=== PATIENT | female | born 1945 | race Caucasian/White ===

== ENCOUNTER 2016-10-15 11:15 | Emergency (ER) | payer MEDICARE ==
[~2016-10-15] VITALS: Ht 167.6 cm; Wt 103.0 kg
[2016-10-15 11:21] VITALS: BP 188/84; PULSE 53; RESP 16; TEMP 97.5; O2SAT 95
[2016-10-15] MEDS ORDERED: HYDR25TA5 PO (11:31)
[2016-10-15] MEDS ORDERED: METO50TA11 PO (11:31)
[2016-10-15] MEDS ORDERED: OMEP10CA PO (11:31)
[2016-10-15] MEDS ORDERED: PROZ20CA11 PO (11:31)
[2016-10-15] MEDS ORDERED: LOVA20TA PO (11:31)
--- NOTE | 2016-10-15 11:43 | PD ---
HPI Chief Complaint: Injury Time Seen by Provider: 11:38 Travel History International Travel<30 days: No Contact w/Intl Traveler<30days: No Traveled to known affect area: No History of Present Illness HPI 71 y/o female presents the emergency department status post trip and fall walking her dog this morning. Patient states she tripped and fell forward sustaining an abrasion to the anterior left knee, and abrasions to the chin, upper and lower lip. There is a superficial laceration to the inner buccal membrane of the lower lip. She denies any dental injury or loose teeth. He denies loss of consciousness, or neck pain. Patient denies headache, dizziness , or pain in her jaw. She is completely right upper arm pain, although there is no visible injury to the right arm itself. She has no numbness, tingling, or weakness. Pain is described as a 3 out of 10. It is worse with movement of the right arm. She is allergic to penicillin and Vasotec. PFSH Past Medical History Hx Anticoagulant Therapy: No Anxiety: Yes Cardiovascular Problems: Yes (HTN, CHOL) High Cholesterol: Yes Diabetes: Yes (PRE) Patient Takes Glucophage: No Diminished Hearing: No GERD: Yes Hypertension: Yes Tetanus Vaccination: < 5 Years Influenza Vaccination: Yes ?: Not Past Surgical History Hysterectomy: Yes Social History Alcohol Use: Yes (occ.) Tobacco Use: No Substance Use: No Allergies-Medications (Allergen,Severity, Reaction): Coded Allergies: Penicillin (Verified Allergy, Severe, 10/15/16) Vasotec (Verified Allergy, Severe, 10/15/16) Reported Meds & Prescriptions Reported Meds & Active Scripts Active Ibuprofen 600 Mg Tab 600 Mg PO Q6H PRN Non-Aspirin Pain Relief ES (Acetaminophen) 500 Mg Tab 1,000 Mg PO Q6HR PRN Reported Omeprazole 10 Mg Cap 10 Mg PO DAILY Lovastatin 20 Mg Tab 20 Mg PO DAILY Prozac (Fluoxetine HCl) 20 Mg Cap 20 Mg PO DAILY Metoprolol Succinate ER 24 HR (Metoprolol Succinate) 50 Mg Tab 50 Mg PO DAILY Hydrochlorothiazide 25 Mg Tab 25 Mg PO DAILY Review of Systems Except as stated in HPI: all other systems reviewed are Neg General / Constitutional: No: Fever Eyes: No: Visual changes HENT: No: Headaches Cardiovascular: No: Chest Pain or Discomfort Respiratory: No: Shortness of Breath Gastrointestinal: No: Abdominal Pain Genitourinary: No: Dysuria Musculoskeletal: No: Pain Skin: No Rash Neurologic: No: Weakness Psychiatric: No: Depression Endocrine: No: Polydipsia Hematologic/Lymphatic: No: Easy Bruising Physical Exam Narrative GENERAL: Moderately obese female who is ambulatory and in mild distress. SKIN: Warm and dry. Normal color. Normal turgor. Superficial abrasion noted to the left anterior knee, as well as the upper lip, lower lip, and chin. HEAD: Atraumatic. Normocephalic. Mild tenderness at abrasion site. EYES: Pupils equal and round. No scleral icterus. No injection or drainage. ENT: No nasal bleeding or discharge. Mucous membranes pink and moist. No dental injury. No pain with TMJ motion. Pharynx is clear. Airway is patent. Patient has a small laceration to the inner buccal membranes without significant bleeding at this time. NECK: Trachea midline. No JVD. No bony tenderness or step-off. Range of motion is full and nontender. CARDIOVASCULAR: Regular rate and rhythm. RESPIRATORY: No accessory muscle use. Clear to auscultation. Breath sounds equal bilaterally. GASTROINTESTINAL: Abdomen soft, non-tender, nondistended. Hepatic and splenic margins not palpable. MUSCULOSKELETAL: Extremities without clubbing, cyanosis, or edema. No obvious deformities. Patient has decreased range of motion in the right shoulder secondary to discomfort. There is no obvious loss of function however. Neurovascular exam is normal distally. The right elbow, wrist, and hand are within normal limits. NEUROLOGICAL: Awake and alert. No obvious cranial nerve deficits. Motor grossly within normal limits. Five out of 5 muscle strength in the arms and legs. Normal speech. PSYCHIATRIC: Appropriate mood and affect; insight and judgment normal. Data Data Last Documented VS Vital Signs Date Time Temp Pulse Resp B/P Pulse Ox O2 Delivery O2 Flow Rate FiO2 10/15/16 11:21 97.5 53 16 188/[address] Brain W/O Iv Contrast(Rout) (10/15/16 11:43) Humerus (Min 2vws) (10/15/16 11:43) [facility] Medical Decision Making Medical Screen Exam Complete: Yes Emergency Medical Condition: Yes Differential Diagnosis Trip and fall. Facial abrasion. Facial contusion. Left knee abrasion. Right upper arm pain. Possible fracture. Narrative Course Patient is a medically stable at time of exam. CT of the head is ordered. X-ray of the right humerus is ordered. Both the CT of the head and x-ray of the right humerus is negative for radiologist. Patient is to apply antibiotic ointment to the facial abrasions and knee abrasions. Patient is to use ice frequently to the affected areas. Patient is given a prescription for acetaminophen 500 mg 2 tabs every 6 hours when necessary #60. Patient's also given ibuprofen to be taken with the acetaminophen 600 mg 4 times a day #40. Patient is to rest and follow up with her primary care physician as needed. Diagnosis Primary Impression: Fall from slip, trip, or stumble Qualified Code: W01.0XXA - Fall from slip, trip, or stumble, initial encounter Additional Impressions: Facial contusion Qualified Code: S00.83XA - Facial contusion, initial encounter Facial abrasion Qualified Code: S00.81XA - Facial abrasion, initial encounter Strain of right upper arm Qualified Code: S46.911A - Strain of right upper arm, initial encounter Referrals: Primary Care Physician Patient Instructions: Abrasion (ED), Arm Pain (ED), Facial Contusion (ED), General Instructions Additional Instructions: Both the CT of the head and x-ray of the right humerus is negative for radiologist. Patient is to apply antibiotic ointment to the facial abrasions and knee abrasions. Patient is to use ice frequently to the affected areas. Patient is given a prescription for acetaminophen 500 mg 2 tabs every 6 hours when necessary #60. Patient's also given ibuprofen to be taken with the acetaminophen 600 mg 4 times a day #40. Patient is to rest and follow up with her primary care physician as needed. Med/Other Pt SpecificInfo: Prescription(s) given Scripts Ibuprofen 600 Mg Vyg773 Mg PO Q6H PRN (Pain/Inflammation) #40 TAB Prov:Elo Oneill DO 10/15/16 Acetaminophen (Non-Aspirin Pain Relief ES)500 Mg Tab1,000 Mg PO Q6HR PRN (PAIN) #60 TAB Prov:Elo Oneill DO 10/15/16 Disposition: 01 DISCHARGE HOME Condition: Stable King Niño Oct 15, 2016 11:42
--- NOTE | 2016-10-15 12:15 | RADRPT ---
EXAM DATE/TIME: 10/15/2016 11:52 [facility] COMPARISON: No previous studies available for comparison. INDICATIONS : Trauma. Fall. RADIATION DOSE: 61.68 CTDIvol (mGy) MEDICAL HISTORY : Diabetes mellitus type 2. Hypertension. SURGICAL HISTORY : Hysterectomy. ENCOUNTER: Initial ACUITY: 1 day PAIN SCALE: 0/10 LOCATION: cranial TECHNIQUE: Multiple contiguous axial images were obtained of the head. Using automated exposure control and adj ustment of the mA and/or kV according to patient size, radiation dose was kept as low as reasonably a chievable to obtain optimal diagnostic quality images. DICOM format image data is available electro nically for review and comparison. FINDINGS: CEREBRUM: The ventricles are normal for age. No evidence of midline shift, mass lesion, hemorrhage or acute in farction. No extra-axial fluid collections are seen. POSTERIOR FOSSA: The cerebellum and brainstem are intact. The 4th ventricle is midline. The cerebellopontine angle i s unremarkable. EXTRACRANIAL: The visualized portion of the orbits is intact. SKULL: The calvaria is intact. No evidence of skull fracture. CONCLUSION: Negative exam. Lg Doherty MD on October 15, 2016 at 12:13 Board Certified Radiologist. This report was verified electronically.
[2016-10-15] MEDS ORDERED: NON-500T13 PO (12:35)
[2016-10-15] MEDS ORDERED: IBUP-232 PO (12:35)
--- NOTE | 2016-10-15 12:35 | RADRPT ---
EXAM DATE/TIME: 10/15/2016 12:14 [facility] COMPARISON: No previous studies available for comparison. INDICATIONS : Trauma. Fall. Right mid humerus pain. MEDICAL HISTORY : Hypertension. SURGICAL HISTORY : None. ENCOUNTER: Initial ACUITY: 1 day PAIN SCORE: 7/10 LOCATION: Right upper extremity FINDINGS: Two view examination of the right humerus demonstrates no evidence of fracture or dislocation. Bony mineralization is normal. The soft tissue structures are intact. CONCLUSION: Negative exam. Lg Doherty MD on October 15, 2016 at 12:33 Board Certified Radiologist. This report was verified electronically.
== END 2016-10-15 12:46 | disposition home or self-care (01) ==
LOC: PHEFT 11:15
DX: S00.83XA Contusion of other part of head, initial encounter (principal); S00.81XA Abrasion of other part of head, initial encounter; S46.911A Strain of unspecified muscle, fascia and tendon at shoulder and upper arm level, right arm, initial encounter; S80.212A Abrasion, left knee, initial encounter; W01.0XXA Fall on same level from slipping, tripping and stumbling without subsequent striking against object, initial encounter; Y93.K1 Activity, walking an animal
CPT/HCPCS: 70450; 73060